=== PATIENT | female | born 1990 | race Caucasian/White ===

== ENCOUNTER → 2020-05-12 10:55 | Outpatient (CLI) | payer OTHER, SELFPAY ==
--- NOTE | 2020-05-12 | DI.RAD.S_ITS ---
PROCEDURE: XR CHEST 2V INDICATIONS: ROUTINE SCREENING MAMMOGRAM TECHNIQUE: 2 views of the chest were acquired. COMPARISON: [facility], , CHEST 1 VIEW, 11/09/2016, 14:03. FINDINGS: Surgical changes and devices: None. Lungs and pleura: Lungs are clear. No pleural effusions or pneumothorax. Mediastinum: Mediastinal contours are normal. Heart size is normal. Bones and chest wall: No suspicious bony abnormalities. Soft tissues appear unremarkable. IMPRESSION: No acute cardiopulmonary process demonstrated radiographically. Dictated by: Kenrick Olivas M.D. on 05/12/2020 at 11:14 Approved by: Kenrick Olivas M.D. on 05/12/2020 at 11:15
== END ==
PROVIDERS: Family Provider Family Medicine; PCP Family Medicine; Referring Provider Family Medicine; Visit Provider Family Medicine
DX: J45.901 Unspecified asthma with (acute) exacerbation (principal)
CPT/HCPCS: 71046

== ENCOUNTER 2022-12-06 10:06 | Emergency (ER) | payer BC, SELFPAY ==
[2022-12-06 10:10] VITALS: BP 110/59; PULSE 78; RESP 14; TEMP 36.8; O2SAT 98
--- NOTE | 2022-12-06 11:07 | ED_ITS ---
HPI - Extremity Injury (Lower) General Chief Complaint: Extremity Injury, Lower Stated Complaint: Bit by dog T-6 days, sent by for poss/bld clot Time Seen by Provider: 12/06/22 11:04 Source: patient Mode of arrival: Ambulatory History of Present Illness HPI Narrative: 32-year-old female who 60s ago had a dog bite to her right calf muscle. She is currently on antibiotics. She states she feels like the the wound is actually improving however she is getting some tenderness up on the inside of her right leg. She was told to come to the emergency department for potential blood clot. She states it is not changing any color. Related Data Previous Rx's Medication Instructions Recorded ACETAMINOPHEN 1 - 2 tab PO Q4HPP PRN ##30 11/11/16 Allergies Allergy/AdvReac Type Severity Reaction Status Date / Time Sulfa (Sulfonamide Allergy Verified 12/06/22 10:15 Antibiotics) hydrocodone [HYDROCODONE] AdvReac Intermediate VOMITING Unverified 11/15/17 11:45 Review of Systems Constitutional Constitutional: Reports system reviewed and no additional complaints, except as documented Musculoskeletal Musculoskeletal: Reports system reviewed and no additional complaints, except as documented Integumentary/Breasts Skin/Breast: Reports system reviewed and no additional complaints, except as documented Neurologic Neurologic: Reports system reviewed and no additional complaints, except as documented Patient History Social History Smoking Status: Unknown if ever smoked Smoking Status: Unknown if ever smoked alcohol intake frequency: holidays/special occasions only Substance Use Type: marijuana Exam Initial Vital Signs Initial Vital Signs: Vital Signs Temperature 98.2 F 12/06/22 10:10 Pulse Rate 78 12/06/22 10:10 Respiratory Rate 14 12/06/22 10:10 Blood Pressure 110/59 L 12/06/22 10:10 Pulse Oximetry 98 12/06/22 10:10 Oxygen Delivery Method Room Air 12/06/22 10:10 Back/Spine/Pelvis Other: Patient does have ecchymosis and puncture wounds to the medial aspect of the right calf muscle that appear appropriate for the state in the healing. There is no signs of any infection. She does not have any redness streaking up the inside of her right thigh. No fevers. Neuro Sensory Exam: no sensory deficits noted Extrem Other: Does have some discomfort to the medial portion of her right thigh. Course Orders Ordered: ED Orders 12/06/22 11:08 US periph venous low extrem rt Stat Vital Signs Vital signs: Vital Signs - 8 hr 12/06/22 10:10 12/06/22 12:24 Temperature 98.2 F Pulse Rate 78 78 Respiratory Rate 14 16 Blood Pressure 110/59 L 128/75 Pulse Oximetry 98 97 Oxygen Delivery Method Room Air Room Air MDM - Extremity Injury (Lower) Imaging Data US - DVT: Radiologist's Impression: PROCEDURE:? US PERIPH VENOUS LOW EXTREM RT ? INDICATIONS:? THIGH TO POSTERIOR KNEE PAIN. DOG BITE TO CALF SIX DAYS AGO. ? TECHNIQUE:? Real-time imaging, as well as color and pulse Doppler interrogation, were performed of the lower extremity deep veins from the inguinal ligament to the popliteal fossa.? ? COMPARISON:? None. ? FINDINGS:? The common femoral, femoral and popliteal veins are normally compressible, and free of intraluminal thrombus.? Color and pulse Doppler demonstrate normal phasic intraluminal flow.? There is normal augmentation response to distal compression maneuver. ? ? IMPRESSION:? ? Negative for deep venous thrombosis. [facility] Narrative Medical decision making narrative: The wounds on her right inner thigh do appear well without any signs of infection. She is currently on antibiotics and I will have her continue to take this. The ultrasound is negative for DVT. There does not appear to be any infection in her upper thigh. There are no new injuries in this area. No indication for further radiologic studies. I did discuss all this with the patient. Discussed return precautions and follow-up instructions. She expressed understanding and agreement. Discharge Plan Departure Patient Disposition: Home Clinical Impression: Leg pain Activity Restrictions/Additional Instructions: I recommend that you continue with the antibiotics as directed. Return to the emergency department for new or worsening symptoms. Prescriptions: No Action ACETAMINOPHEN 1 - 2 tab PO Q4HPP PRNQty: 30 0RF Referrals: Archie Huizar MD [Primary Care Provider] - Stand Alone Forms: Patient Portal/API
--- NOTE | 2022-12-06 11:08 | DI.US.S_ITS ---
PROCEDURE: US PERIPH VENOUS LOW EXTREM RT INDICATIONS: THIGH TO POSTERIOR KNEE PAIN. DOG BITE TO CALF SIX DAYS AGO. TECHNIQUE: Real-time imaging, as well as color and pulse Doppler interrogation, were performed of the lower extremity deep veins from the inguinal ligament to the popliteal fossa. COMPARISON: None. FINDINGS: The common femoral, femoral and popliteal veins are normally compressible, and free of intraluminal thrombus. Color and pulse Doppler demonstrate normal phasic intraluminal flow. There is normal augmentation response to distal compression maneuver. IMPRESSION: Negative for deep venous thrombosis. Dictated by: Joe Valenzuela M.D. on 12/06/2022 at 10:50 Approved by: Joe Valenzuela M.D. on 12/06/2022 at 10:50
[2022-12-06 12:24] VITALS: BP 128/75; PULSE 78; RESP 16; O2SAT 97
== END 2022-12-06 12:25 | disposition home or self-care (01) ==
PROVIDERS: Emergency Provider Emergency Medicine; Family Provider Family Medicine; PCP Family Medicine
DX: M79.604 Pain in right leg (principal)
CPT/HCPCS: 93971; 99281; 99283

== ENCOUNTER → 2023-10-30 15:50 | Outpatient (CLI) | payer BC, SELFPAY ==
--- NOTE | 2023-10-30 | DI.RAD.S_ITS ---
PROCEDURE: XR ACUTE ABDOMEN SERIES INDICATIONS: ABD PAIN TECHNIQUE: One view chest and two views of the abdomen were acquired. COMPARISON: None. FINDINGS: Surgical changes and devices: None. Chest: Lungs are clear. Heart size is normal. No pleural effusions. No pneumoperitoneum. Abdomen: Bowel gas pattern is normal. No suspicious calcifications. Visualized solid organ contours appear normal. Bones: No suspicious bony lesions. IMPRESSION: No acute abnormality. Approved by: Ramone Pena M.D. on 10/30/2023 at 19:03
== END ==
PROVIDERS: Family Provider Family Medicine; PCP Family Medicine; Referring Provider Family Medicine; Visit Provider Family Medicine
DX: R10.31 Right lower quadrant pain (principal)
CPT/HCPCS: 74022

== ENCOUNTER → 2024-05-29 12:05 | Outpatient (CLI) | payer BC, SELFPAY ==
--- NOTE | 2024-05-29 | DI.CT.S_ITS ---
PROCEDURE: CT ABDOMEN PELVIS W CON INDICATIONS: Right lower quadrant pain TECHNIQUE: After the administration of intravenous contrast, axial sections acquired from the lung bases to the pubic symphysis. Coronal and sagittal reformats were performed. For radiation dose reduction, the following was used: automated exposure control, adjustment of mA and/or kV according to patient size. COMPARISON: [facility], , PELVIC COMPLETE, 06/20/2017, 12:27. FINDINGS: Image quality: Diagnostic. Lower Chest: No significant findings. ABDOMEN: Liver: No solid mass. Gallbladder: No radiopaque gallstones or wall thickening. Biliary ducts: No biliary dilation. Pancreas: No ductal dilation. Spleen: Size is within normal limits. Adrenal Glands: No adrenal nodules. Kidneys and Ureters: No hydronephrosis. No solid mass. No complex renal cystic lesion which requires follow up. No nephrolithiasis. Stomach and Bowel: Normal colonic caliber, without significant wall thickening. Normal appendix. Peritoneum: No abnormal intraperitoneal fluid. No free air. Ventral Wall: No significant ventral hernia. Abdominal Nodes: No retroperitoneal or mesenteric adenopathy by size criteria. Vessels: Aorta and inferior vena cava are normal in size. PELVIS: Pelvic Organs: Uterus is unremarkable. The ovaries measure greater than 10 mL, with multiple peripheral follicles. Bladder: No bladder wall thickening, accounting for underdistention. Pelvic Nodes: No enlarged lymph nodes. Miscellaneous: No inguinal hernias are seen. Bones: No aggressive osseous abnormality. Central disc protrusion at L5-S1, likely contacting the S1 nerve roots. IMPRESSION: The ovaries measure greater than 10 mL, with multiple peripheral follicles. Findings may be seen in the clinical setting of PCOS. Central disc protrusion at L5-S1, likely contacting the S1 nerve roots. Correlate with symptoms. Otherwise, no findings to explain the patient's right lower quadrant pain. Normal appendix. No nephrolithiasis. Normal gallbladder. Dictated by: Sebastien Cortez M.D. on 05/29/2024 at 16:33 Approved by: eSbastien Cortez M.D. on 05/29/2024 at 16:35
== END ==
PROVIDERS: Family Provider Family Medicine; PCP Family Medicine; Referring Provider Family Medicine; Visit Provider Family Medicine
DX: R10.31 Right lower quadrant pain (principal); M51.27 Other intervertebral disc displacement, lumbosacral region
CPT/HCPCS: 74177; Q9967